=== PATIENT | male | born 1985 | race Caucasian/White ===

== ENCOUNTER 2021-07-30 13:10 | Emergency (ER) | payer MEDICAID, SELFPAY ==
--- NOTE | 2021-07-30 | ECG_ITS ---
Test Reason : hypertension Blood Pressure : / mmHG Vent. Rate : 096 BPM Atrial Rate : 096 BPM P-R Int : 146 ms QRS Dur : 088 ms QT Int : 366 ms P-R-T Axes : 051 012 011 degrees QTc Int : 462 ms Normal sinus rhythm Normal ECG When compared with ECG of 28-AUG-2016 15:23, No significant change was found Referred By: Generic ED Physician Electronically Signed By:JENNIFER GARCIA MD
[2021-07-30 13:25] VITALS: BP 206/94; PULSE 99; RESP 18; TEMP 36.8; O2SAT 98; BMI 36.2
[2021-07-30 13:43] LABS: MANUAL DIFF FLAG NO
[2021-07-30 13:47] LABS: Basophils Absolute Auto 0.1 X10*3/uL (0.0-0.2); Basophils Percent Auto 0.6 % (0-2); Eosinophils Absolute Auto 0.3 X10*3/uL (0.0-0.4); Eosinophils Percent Auto 3.3 % (0-4); Hematocrit 42.7 % (42.0-52.0); Imm Gran Abs Auto 0.06 X10*3/uL (0.00-0.03); Imm Gran Pct Auto 0.7 % (0.0-0.4); Lymphocytes Absolute Auto 2.3 X10*3/uL (1.2-4.9); Lymphocytes Percent Auto 26.8 % (20-40); Mean Corpuscular HGB Conc 32.8 g/dl (31.0-36.0); Mean Corpuscular Hemoglobin 28.1 pg (27.0-33.0); Mean Corpuscular Volume 85.6 fL (80.0-98.0); Mean Platelet Volume 10.3 fL (9.4-12.4); Monocytes Absolute Auto 0.7 X10*3/uL (0.1-1.2); Monocytes Percent Auto 7.6 % (2-11); Neutrophils Absolute Auto 5.3 x10*3/uL (2.0-8.3); Platelet Count 284 X10*3/uL (160-400); Red Blood Count 4.99 X10*6/uL (4.60-5.80); Red Cell Distribution Width 12.3 % (11.0-16.0); White Blood Count 8.7 X10*3/uL (4.8-10.8)
[2021-07-30 14:05] LABS: Alanine Aminotransferase 17 U/L (0-40); Albumin Level 4.3 g/dL (3.5-5.0); Alkaline Phosphatase 84 U/L (39-117); Anion Gap 14 (12-20); Aspartate Amino Transferase 15 U/L (5-37); Bilirubin Total 0.8 mg/dL (0.0-1.0); Blood Urea Nitrogen 9 mg/dL (9-16); Calcium 9.7 mg/dL (8.4-10.2); Carbon Dioxide 32 mmol/L (22-29); Chloride 98 mmol/L (96-108); Creatinine Clr Calc Pharmacy 145.1; Estimated Glomerular Filt Rate > 60; Sodium 140 mmol/L (135-145)
[2021-07-30 14:06] LABS: Glucose Random 361 mg/dL (60-115)
[2021-07-30 14:10] LABS: Troponin-I High Sensitivity < 3.5 ng/L (<3.5-35.0)
--- NOTE | 2021-07-30 17:33 | ED.GENADULT ---
HPI - General Adult General Chief complaint: General Medical <Tayler Garcia SHERWIN Medina - Last Filed: 07/30/21 20:30> Stated complaint: high bp <Tayler Garcia SHERWIN Medina - Last Filed: 07/30/21 20:30> Time Seen by Provider: 07/30/21 17:33 <Tayler Radhamaru Medina CNP - Last Filed: 07/30/21 20:30> Source: patient <Tayler Garcia SHERWIN Medina - Last Filed: 07/30/21 20:30> Mode of arrival: ambulatory <Tayler Garcia SHERWIN Medina - Last Filed: 07/30/21 20:30> Limitations: no limitations <Tayler Garcia SHERWIN Medina - Last Filed: 07/30/21 20:30> History of Present Illness HPI narrative: Patient is a 35-year-old male with a past medical history of hypertension, previously prescribed lisinopril but has not been on the medication for 1 year, states he has not followed up with primary care provider therefore was unable to obtain any prescription. Patient presents to the emergency department for evaluation of elevated blood pressure readings for the past 3 days. reports readings as high as 220/120. He believes in the past he was taking lisinopril- 30 or 40 mg but is unable to remember exact dosage. he denies any symptoms, persistent headaches, vision changes, dizziness lightheadedness neck pain chest pain, palpitations, shortness of breath is on exertion, nausea, vomiting, abdominal pain, pedal edema. <Taylercheo Medina CNP - Last Filed: 07/30/21 20:30> Related Data Home medications: Previous Rx's Medication Instructions Recorded alcohol swabs (Alcohol Wipes) 1 pad TOPICAL BID #200 ea 07/30/21 blood sugar diagnostic (FreeStyle #100 ea 07/30/21 Lite Strips) blood-glucose meter (FreeStyle #1 ea 07/30/21 Lite Meter) lancets 28 gauge (FreeStyle #100 ea 07/30/21 Lancets) lisinopril 10 mg tablet 10 mg PO DAILY #14 tab 07/30/21 metformin 500 mg tablet 500 mg PO DAILY #14 tab 07/30/21 <Tayler Medina CNP - Last Filed: 07/30/21 20:30> Allergies/adverse reactions: Allergies Allergy/AdvReac Type Severity Reaction Status Date / Time almond Allergy Itching Verified 07/30/21 13:24 <Tayler Medina CNP - Last Filed: 07/30/21 20:30> Review of Systems Review of Systems: Constitutional : No Weight loss, No Fever, No Chills ENT/Mouth :? No sore throat, No Rhinorrhea Eyes: No Eye Pain, No Swelling Cardiovascular : no Chest Pain, no SOB, no Dyspnea on Exertion, No Orthopnea, No Edema, No Palpitations Respiratory : No Cough, No Sputum Gastrointestinal : no Nausea, No Vomiting, No Diarrhea, No abdominal Pain, No Hematochezia, No Melena Genitourinary : No Dysuria, No Urinary Frequency Musculoskeletal : No joint pain, No Myalgias, No Joint Swelling Skin : No Skin Lesions, No rash Neuro : No Weakness, No Numbness, No Dizziness, No Headache Psych : No Anxiety/Panic, No Depression Heme/Lymph: No Bruising, No Lymphadenopathy Endocrine : No Polyuria, No Polydipsia, No polyphagia ? All other systems reviewed and are negative <Tayler Medina CNP - Last Filed: 07/30/21 20:30> [facility] Past Medical History Attestation statement: The following information was validated with the patient. <Tayler Medina CNP - Last Filed: 07/30/21 20:30> Source: old records reviewed <Tayler Medina CNP - Last Filed: 07/30/21 20:30> Social History Social History: Social History Alcohol intake: current Alcohol intake frequency: a few times a week Patient Tobacco Use Status: Never used Tobacco Smoked in Last 30 Days: No Use of substances other than those prescribed or required for medical reasons: No Substance Use Type: Former Substance User Any prior treatment program specific to substance use: Yes Advance Directives: No Advance Directives Information Provided: No <Tayler Medina CNP - Last Filed: 07/30/21 20:30> Physical Exam ED Vital Signs: Vital Signs - 24 hr 07/30/21 13:25 07/30/21 18:09 07/30/21 19:19 Temperature 98.3 F 98.2 F Pulse Rate 99 85 82 Respiratory Rate 18 16 18 Blood Pressure 206/94 H 218/114 H 199/110 H Pulse Oximetry 98 98 100 BMI result Body Mass Index 36.2 Vital signs have been reviewed and appeared to be correct. Blood pressure elevated.? Heart rate normal.? Respiration rate normal. Temperature normal.? Oxygen saturation normal. <Tayler Medina CNP - Last Filed: 07/30/21 20:30> Appearance: Alert.?Oriented to person, place and time. No acute distress.?Normal affect. Eyes: Pupils equal, round and reactive to light.? ENT: Pharynx normal.?? Neck: Normal inspection.? Neck supple.?? CVS: Heart sounds normal. Normal heart rate and rhythm.? Pulses normal.?? Respiratory: No respiratory distress.? Lung sounds clear to auscultation bilaterally?? Abdomen: Soft and non-tender. Normoactive bowel sounds. No pulsatile mass.?? Skin: Skin warm and dry.? Normal skin color.? Normal skin turgor.?? Extremities: No lower extremity edema.? No calf ttp? Neuro: Moves all extremities spontaneously. Sensation intact bilaterally. CN II-XII intact. No focal neuro deficits. Ambulates with normal steady gait. <Tayler Medina CNP - Last Filed: 07/30/21 20:30> Course Course Course Narrative: Patient denies any increased thirst, increased hunger, or urinary frequency. Reports a family history of diabetes but no personal history. Serum labs obtained in triage revealed that patient has been critically elevated random glucose level, 361, with repeat 248. Otherwise unremarkable CMP. CBC is unremarkable. Troponin obtained was <3.5, EKG reveals normal sinus rhythm with no acute concerns for ischemia. Will plan to medicate patient with lisinopril 10 mg and re-evaluate blood pressure. Likely patient will be discharged home today with prescription for lisinopril and metformin for new onset type 2 diabetes, and glucometer/ supplies. We discussed the importance of establishing care with a primary care provider. We discussed complications of uncontrolled hypertension, uncontrolled diabetes over time and the affects on multiple body systems and organs including life-threatening events. Patient is verbalizing understanding, and states that he will assume care with a new provider. <Tayler Medina CNP - Last Filed: 07/30/21 20:30> Reevaluation(s) Reevaluation #1: Blood pressure improved to 199/ 105. Patient continues to be asymptomatic, Well-appearing, nontoxic, no tachycardia, tachypnea, or hypoxia. ambulatory with steady gait. Again reviewed plan of care for discharge home, patient is agreeable plan of care. <Taylercheo Medina CNP - Last Filed: 07/30/21 20:30> Time: 19:45 <Taylercheo Medina CNP - Last Filed: 07/30/21 20:30> Medical Decision Making Medical Records Medical records reviewed: Yes I reviewed the patient's medical records. <Taylercheo Medina CNP - Last Filed: 07/30/21 20:30> Lab Data Lab results reviewed: Yes I reviewed the patient's lab results. <Taylercheo Medina CNP - Last Filed: 07/30/21 20:30> Result diagrams: : 07/30/21 13:34 07/30/21 13:34 <Tayler Gimenezmaru Medina CNP - Last Filed: 07/30/21 20:30> Labs: Lab Results 07/30/21 07/30/21 07/30/21 Range/Units 13:34 13:34 13:34 WBC 8.7 (4.8-10.8) X10*3/uL RBC 4.99 (4.60-5.80) X10*6/uL Hgb 14.0 (14.0-18.0) g/dl Hct 42.7 (42.0-52.0) % MCV 85.6 (80.0-98.0) fL MCH 28.1 (27.0-33.0) pg MCHC 32.8 (31.0-36.0) g/dl RDW 12.3 (11.0-16.0) % Plt Count 284 (160-400) X10*3/uL MPV 10.3 (9.4-12.4) fL Immature Gran % (Auto) 0.7 H (0.0-0.4) % Neut % (Auto) 61.0 (45-73) % Lymph % (Auto) 26.8 (20-40) % [place] % (Auto) 7.6 (2-11) % Eos % (Auto) 3.3 (0-4) % Baso % (Auto) 0.6 (0-2) % Lymph # (Auto) 2.3 (1.2-4.9) X10*3/uL [place] # (Auto) 0.7 (0.1-1.2) X10*3/uL Eos # (Auto) 0.3 (0.0-0.4) X10*3/uL Baso # (Auto) 0.1 (0.0-0.2) X10*3/uL Abs Immat Gran (auto) 0.06 H (0.00-0.03) X10*3/uL Absolute Neuts (auto) 5.3 (2.0-8.3) x10*3/uL Absolute Nucleated RBC 0.000 (0.0-0.012) X10*3/uL Nucleated RBC % (auto) 0.0 (0.0-0.2) /100WBC Sodium 140 (135-145) mmol/L Potassium 4.0 (3.3-5.1) mmol/L Chloride 98 (96-108) mmol/L Carbon Dioxide 32 H (22-29) mmol/L Anion Gap 14 (12-20) BUN 9 (9-16) mg/dL Creatinine 0.91 (0.5-1.4) mg/dL Estim Creat Clear Calc 145.1 Estimated GFR > 60 POC Glucose (60-115) mg/dL Random Glucose 361 H* (60-115) mg/dL Calcium 9.7 (8.4-10.2) mg/dL Total Bilirubin 0.8 (0.0-1.0) mg/dL AST 15 (5-37) U/L ALT 17 (0-40) U/L Alkaline Phosphatase 84 (39-117) U/L Troponin I High Sens < 3.5 (<3.5-35.0) ng/L Total Protein 7.0 (6.5-8.0) g/dL Albumin 4.3 (3.5-5.0) g/dL 07/30/21 Range/Units 17:55 WBC (4.8-10.8) X10*3/uL RBC (4.60-5.80) X10*6/uL Hgb (14.0-18.0) g/dl Hct (42.0-52.0) % MCV (80.0-98.0) fL MCH (27.0-33.0) pg MCHC (31.0-36.0) g/dl RDW (11.0-16.0) % Plt Count (160-400) X10*3/uL MPV (9.4-12.4) fL Immature Gran % (Auto) (0.0-0.4) % Neut % (Auto) (45-73) % Lymph % (Auto) (20-40) % [place] % (Auto) (2-11) % Eos % (Auto) (0-4) % Baso % (Auto) (0-2) % Lymph # (Auto) (1.2-4.9) X10*3/uL [place] # (Auto) (0.1-1.2) X10*3/uL Eos # (Auto) (0.0-0.4) X10*3/uL Baso # (Auto) (0.0-0.2) X10*3/uL Abs Immat Gran (auto) (0.00-0.03) X10*3/uL Absolute Neuts (auto) (2.0-8.3) x10*3/uL Absolute Nucleated RBC (0.0-0.012) X10*3/uL Nucleated RBC % (auto) (0.0-0.2) /100WBC Sodium (135-145) mmol/L Potassium (3.3-5.1) mmol/L Chloride (96-108) mmol/L Carbon Dioxide (22-29) mmol/L Anion Gap (12-20) BUN (9-16) mg/dL Creatinine (0.5-1.4) mg/dL Estim Creat Clear Calc Estimated GFR POC Glucose 248 H (60-115) mg/dL Random Glucose (60-115) mg/dL Calcium (8.4-10.2) mg/dL Total Bilirubin (0.0-1.0) mg/dL AST (5-37) U/L ALT (0-40) U/L Alkaline Phosphatase (39-117) U/L Troponin I High Sens (<3.5-35.0) ng/L Total Protein (6.5-8.0) g/dL Albumin (3.5-5.0) g/dL <Tayler MedinaSHERWIN - Last Filed: 07/30/21 20:30> ECG Data Attestation: I personally reviewed and interpreted this ECG as follows: <Tayler MedinaSHERWIN - Last Filed: 07/30/21 20:30> Prior ECG tracings: available for review <Tayler MedinaSHERWIN - Last Filed: 07/30/21 20:30> Interpretation: Rate: 96 Rhythm:? normal sinus rhythm [place]:? normal Normal P waves.? Normal RESHMA.?? Normal QRS complex.?? ST T wave :?? no ST elevation, no ST depression, no T-wave inversion qTC: 462 prior studies:? August 2016 The study has been interpreted contemporaneously by me. <Tayler Garcia SHERWIN Medina - Last Filed: 07/30/21 20:30> Discharge Plan Discharge Clinical Impression: Hypertension, Type 2 diabetes mellitus <Tayler BarajasSHERWIN jade - Last Filed: 07/30/21 20:30> Patient Disposition: Home, Self-Care <Tayler BarajasSHERWIN jade - Last Filed: 07/30/21 20:30> Instructions: Heart Healthy Diet (ED), Type 2 Diabetes in Adults: New Diagnosis (ED), Chronic Hypertension (ED), Hypertension and Diabetes (ED), Diabetes and Nutrition (ED), Diabetes and Exercise (ED) <Tayler Garcia SHERWIN Medina - Last Filed: 07/30/21 20:30> Additional Instructions: You were evaluated in the emergency department today because your blood pressure readings have been elevated. You have a known history of hypertension. you are being sent home with a short supply of lisinopril, as you stated you have taken this medication in the past. It is essential to have routine follow-up with a primary care provider and take your high blood pressure medication as prescribed. As we discussed, uncontrolled blood pressure over time with you at higher risk for stroke, heart attack, kidney disease, and life-threatening complications. While you were in the emergency department your blood sugar level was consistently elevated, this is consistent with type 2 diabetes. You havebeen started on a new medication metformin you take this once a day with food. You have also been provided a new prescription for a blood sugar monitor. It is important that you check your blood sugars twice daily and keep a written record of the readings to provide to a primary care provider for further evaluation. Please contact your previous primary care provider or any new primary care provider to establish an appointment to be seen within the next week. You may return to the emergency department at any time with any new or worsening symptoms or concerns <Tayler Medina CNP - Last Filed: 07/30/21 20:30> Prescriptions: New lisinopril 10 mg tablet 10 mg PO DAILY Qty: 14 0RF metformin 500 mg tablet 500 mg PO DAILY Qty: 14 0RF Rx Instructions: take with evening meal (DME) blood-glucose meter [FreeStyle Lite Meter] Kit See Rx Instructions .Route Qty: 1 0RF Rx Instructions: As directed twice daily (DME) FreeStyle Lite Strips Strip See Rx Instructions .Route Qty: 100 0RF Rx Instructions: As directed twice daily (DME) lancets [FreeStyle Lancets] 28 gauge misc See Rx Instructions .Route Qty: 100 0RF Rx Instructions: As directed twice daily alcohol swabs [Alcohol Wipes] Pads, Medicated 1 pad topical BID Qty: 200 0RF <Tayler Medina CNP - Last Filed: 07/30/21 20:30> Interventions: ED Discharge Assessment Last Done: 07/30/21 20:14 <Tayler Medina CNP - Last Filed: 07/30/21 20:30> Discharge Date/Time: 07/30/21 20:15 <Tayler Medina CNP - Last Filed: 07/30/21 20:30>
[2021-07-30 17:59] LABS: Glucose, Whole Blood 248 mg/dL (60-115)
[2021-07-30] MEDS: lisinopriL 10 MG TABLET PO (18:05)
[2021-07-30 18:09] VITALS: BP 218/114; PULSE 85; RESP 16; TEMP 36.8; O2SAT 98
[2021-07-30 19:19] VITALS: BP 199/110; PULSE 82; RESP 18; O2SAT 100
[2021-07-31 07:30] LABS: Estimated Average Glucose 312 mg/dL; Hemoglobin A1c % 12.5 %
== END 2021-07-30 20:15 | disposition home or self-care (01) ==
PROVIDERS: Nurse Practitioner Family; Emergency Provider Emergency Medicine; PCP Family Medicine
DX: I10 Essential (primary) hypertension (principal); E11.9 Type 2 diabetes mellitus without complications
CPT/HCPCS: 36415; 80053; 82947; 83036; 84484; 85025; 93005; 99283; 99284

== ENCOUNTER 2023-09-07 10:48 | Outpatient (REF) | payer MEDICAID, SELFPAY ==
[2023-09-07 11:43] LABS: Hemoglobin 14.5 g/dl (14.0-18.0); Mean Corpuscular HGB Conc 33.7 g/dl (31.0-36.0); Mean Corpuscular Hemoglobin 27.6 pg (27.0-33.0); Mean Corpuscular Volume 81.9 fL (80.0-98.0); Mean Platelet Volume 10.9 fL (9.4-12.4); Platelet Count 431 X10*3/uL (160-400); Red Blood Count 5.25 X10*6/uL (4.60-5.80); Red Cell Distribution Width 12.3 % (11.0-16.0); White Blood Count 13.6 X10*3/uL (4.8-10.8)
[2023-09-07 11:53] LABS: Estimated Average Glucose 232 mg/dL; Hemoglobin A1c % 9.7 % (<6.0)
[2023-09-07 12:16] LABS: Alanine Aminotransferase 27 U/L (0-40); Albumin Level 4.8 g/dL (3.5-5.0); Alkaline Phosphatase 79 U/L (39-117); Anion Gap 12 (12-20); Aspartate Amino Transferase 22 U/L (5-37); Bilirubin Direct 0.3 mg/dL (0.0-0.5); Bilirubin Total 0.6 mg/dL (0.0-1.0); Blood Urea Nitrogen 14 mg/dL (9-16); Carbon Dioxide 30 mmol/L (22-29); Chloride 100 mmol/L (96-108); Cholesterol 129 mg/dL (<200); Estimated Glomerular Filt Rate > 60; Glucose Random 216 mg/dL (60-115); HDL Cholesterol 40 mg/dL (>40); LDL Cholesterol Calculated 57 mg/dL (<100); Potassium 3.2 mmol/L (3.3-5.1); Sodium 139 mmol/L (135-145); Total Protein 7.9 g/dL (6.5-8.0); Triglycerides 164 mg/dL (<150)
[2023-09-07 12:26] LABS: HBS Num1 162.48 mIU/mL (0-7.99); HBsAGNum1 0.32 S/CO (0.00-0.99); HIV AB/AG Nonreactive (Nonreactive); HIV Num 1 0.16 S/CO (0.00-0.99); Hepatitis B Surface Antigen Negative (Negative); ~HepC Num1 0.14 S/CO (0.00-0.79); ~Hepatitis B Surface Antibody REACTIVE (Nonreactive); ~Hepatitis C Antibody Nonreactive (Nonreactive)
[2023-09-07 12:27] LABS: Free T4 (Free Thyroxine) 1.13 ng/dL (0.71-1.85); Thyroid Stimulating Hormone 1.56 uIU/mL (0.32-4.0); Vitamin D 25-OH Total 19.1 ng/mL (>30)
[2023-09-07 12:29] LABS: Creatinine Urine 48.48 mg/dL; Microalbum/Creatinine Ratio Ur 420.7 ug/mg cr (<30)
[2023-09-07 13:38] LABS: CT PCR NOT DETECTED (Not Detect.); NG PCR NOT DETECTED (Not Detect.)
[2023-09-08 11:29] LABS: MANUAL DIFF FLAG NO
[2023-09-08 12:26] LABS: Basophils Absolute Auto 0.1 X10*3/uL (0.0-0.2); Basophils Percent Auto 0.7 % (0-2); Eosinophils Absolute Auto 0.7 X10*3/uL (0.0-0.4); Eosinophils Percent Auto 4.8 % (0-4); Imm Gran Abs Auto 0.04 X10*3/uL (0.00-0.03); Imm Gran Pct Auto 0.3 % (0.0-0.4); Lymphocytes Absolute Auto 3.8 X10*3/uL (1.2-4.9); Lymphocytes Percent Auto 28.2 % (20-40); Monocytes Absolute Auto 0.9 X10*3/uL (0.1-1.2); Monocytes Percent Auto 6.8 % (2-11); Neutrophils Percent Auto 59.2 % (45-73)
[2023-09-08 13:13] LABS: RPR Rapid Plasma Reagin NON-REACTIVE (NON-REACTIVE)
== END 2023-09-07 10:49 | disposition home or self-care (01) ==
LOC: HO.HHCL 10:48
PROVIDERS: Visit Provider Family Medicine
DX: Z00.00 Encounter for general adult medical examination without abnormal findings (principal); Z11.4 Encounter for screening for human immunodeficiency virus [HIV]; E11.9 Type 2 diabetes mellitus without complications; I10 Essential (primary) hypertension; E78.49 Other hyperlipidemia
CPT/HCPCS: 0353U; 36415; 80048; 80061; 80076; 82043; 82306; 82570; 83036; 84439; 84443; 85025; 85027; 86592; 86706; 86803; 87340; 87389

== ENCOUNTER 2023-09-11 13:54 | Outpatient (REF) | payer MEDICAID, SELFPAY ==
[2023-09-11 16:22] LABS: Basophils Absolute Auto 0.1 X10*3/uL (0.0-0.2); Basophils Percent Auto 0.7 % (0-2); Eosinophils Percent Auto 6.9 % (0-4); Hematocrit 41.7 % (42.0-52.0); Hemoglobin 13.7 g/dl (14.0-18.0); Imm Gran Abs Auto 0.07 X10*3/uL (0.00-0.03); Imm Gran Pct Auto 0.5 % (0.0-0.4); Lymphocytes Percent Auto 36.4 % (20-40); MANUAL DIFF FLAG SCAN; Mean Corpuscular HGB Conc 32.9 g/dl (31.0-36.0); Mean Corpuscular Hemoglobin 27.9 pg (27.0-33.0); Mean Corpuscular Volume 84.9 fL (80.0-98.0); Mean Platelet Volume 11.2 fL (9.4-12.4); Monocytes Absolute Auto 0.9 X10*3/uL (0.1-1.2); Monocytes Percent Auto 6.5 % (2-11); Neutrophils Absolute Auto 6.7 x10*3/uL (2.0-8.3); Platelet Count 425 X10*3/uL (160-400); Red Blood Count 4.91 X10*6/uL (4.60-5.80); Red Cell Distribution Width 12.8 % (11.0-16.0); SCAN SMEAR FLAG 1; White Blood Count 13.8 X10*3/uL (4.8-10.8)
[2023-09-11 16:34] LABS: Potassium 3.6 mmol/L (3.3-5.1)
[2023-09-11 17:50] LABS: SLIDE REVIEW VERIFIED
== END 2023-09-11 13:55 | disposition home or self-care (01) ==
LOC: HO.HHCL 13:54
PROVIDERS: Visit Provider Family Medicine
DX: D72.829 Elevated white blood cell count, unspecified (principal); E87.6 Hypokalemia
CPT/HCPCS: 36415; 84132; 85025

== ENCOUNTER 2023-10-17 14:34 | Outpatient (REF) | payer MEDICAID, SELFPAY ==
[2023-10-17 16:04] LABS: MANUAL DIFF FLAG NO
[2023-10-17 16:09] LABS: Basophils Absolute Auto 0.1 X10*3/uL (0.0-0.2); Basophils Percent Auto 0.7 % (0-2); Eosinophils Absolute Auto 0.8 X10*3/uL (0.0-0.4); Eosinophils Percent Auto 6.5 % (0-4); Hematocrit 38.4 % (42.0-52.0); Hemoglobin 12.9 g/dl (14.0-18.0); Imm Gran Abs Auto 0.07 X10*3/uL (0.00-0.03); Imm Gran Pct Auto 0.6 % (0.0-0.4); Lymphocytes Absolute Auto 3.7 X10*3/uL (1.2-4.9); Lymphocytes Percent Auto 29.1 % (20-40); Mean Corpuscular HGB Conc 33.6 g/dl (31.0-36.0); Mean Corpuscular Volume 83.5 fL (80.0-98.0); Monocytes Absolute Auto 0.9 X10*3/uL (0.1-1.2); Neutrophils Absolute Auto 7.1 x10*3/uL (2.0-8.3); Neutrophils Percent Auto 56.1 % (45-73); Platelet Count 359 X10*3/uL (160-400); Red Cell Distribution Width 12.8 % (11.0-16.0); White Blood Count 12.6 X10*3/uL (4.8-10.8)
[2023-10-17 16:21] LABS: Anion Gap 12 (12-20); Blood Urea Nitrogen 15 mg/dL (9-16); Calcium 9.7 mg/dL (8.4-10.2); Carbon Dioxide 31 mmol/L (22-29); Chloride 102 mmol/L (96-108); Estimated Glomerular Filt Rate > 60; Glucose Random 180 mg/dL (60-115); Potassium 3.3 mmol/L (3.3-5.1); Sodium 142 mmol/L (135-145)
== END 2023-10-17 14:35 | disposition home or self-care (01) ==
LOC: HO.HHCL 14:34
PROVIDERS: Visit Provider Family Medicine
DX: D72.829 Elevated white blood cell count, unspecified (principal); E87.6 Hypokalemia
CPT/HCPCS: 36415; 80048; 85025